=== PATIENT | female | born 1985 | race Two or more races ===

== ENCOUNTER 2021-02-14 23:47 | Emergency (ER) | payer MEDICAID, OTHER ==
[~2021-02-14] VITALS: Ht 167.6 cm; Wt 64.4 kg
[2021-02-14 23:47] VITALS: BP 139/98
[2021-02-15] MEDS ORDERED: ONDANSETRON ODT 4 MG TAB PO ONE (02:30)
[2021-02-15] MEDS ORDERED: HYDROcodone-ACET 5/325MG TAB PO ONE (02:30)
== END 2021-02-15 03:45 | disposition home or self-care (01) ==
LOC: ER 23:47
DX: S49.91XA Unspecified injury of right shoulder and upper arm, initial encounter (principal); M54.9 Dorsalgia, unspecified; M25.571 Pain in right ankle and joints of right foot; R51.9 Headache, unspecified; M25.521 Pain in right elbow; M79.671 Pain in right foot; W01.0XXA Fall on same level from slipping, tripping and stumbling without subsequent striking against object, initial encounter; Y93.89 Activity, other specified; Y92.89 Other specified places as the place of occurrence of the external cause; Y99.0 Civilian activity done for income or pay
CPT/HCPCS: 70260; 72040; 73030; 73630; 99284; Q0162